=== PATIENT | male | born 1995 | race African-American/Black ===

== ENCOUNTER 2023-04-03 23:03 | Emergency (ER) | payer OTHER ==
[~2023-04-03] VITALS: Ht 172.7 cm; Wt 127.0 kg
--- NOTE | 2023-04-03 23:20 | NUR ---
Dr James at bedside MSE in progress
[2023-04-03] MEDS ORDERED: IBUPROFEN 800 MG TABLET PO ONE (23:45)
[2023-04-04] MEDS ORDERED: IBUPROFEN 800 MG TABLET ONE
[2023-04-04] MEDS ORDERED: IBUP-1957 PO (00:05)
--- NOTE | 2023-04-04 00:15 | NUR ---
Patient discharged to home in stable condition. Written and verbal after care instructions given. Patient verbalizes understanding of instructions. Stressed follow up or return to ER for worsening s/s. Patient is a/ox4, NAD noted, patient able to ambulate with steady gait
[2023-04-04 00:18] VITALS: BP 129/87
== END 2023-04-04 00:18 | disposition home or self-care (01) ==
LOC: EDBD 23:05 → ER 23:05
DX: S40.012A Contusion of left shoulder, initial encounter (principal); E78.5 Hyperlipidemia, unspecified; E11.9 Type 2 diabetes mellitus without complications; Z79.1 Long term (current) use of non-steroidal anti-inflammatories (NSAID); V49.9XXA Car occupant (driver) (passenger) injured in unspecified traffic accident, initial encounter; Y93.89 Activity, other specified; Y92.89 Other specified places as the place of occurrence of the external cause; Y99.8 Other external cause status
CPT/HCPCS: 73030; A4663